=== PATIENT | male | born 1955 | race Caucasian/White ===

== ENCOUNTER 2025-03-28 17:59 | Emergency (ER) | payer OTHER ==
--- OUTSIDE RECORDS SUMMARY | 2025-03-28 18:01 | XMS REPORT | Continuity of Care Document ---
Author Name Unknown Address [address] [place] [address] Organization [facility] [place] Address [address] [place] [address] Care Team Providers Care Aircraft Time Clerk Name Role Phone Kendra Remy MD Primary Care Physici an Jung Angel RN, Iliana Attending Clinician Unavailable Rosalina Edge RN Attending Clinician Guicho velasco Team, [facility] Health Maintenance Attending Juania n Unavailable Kendra Remy MD Attending Clinician KENDRA REMY Attending Clinician STERLING Luna Attending Clinician Elisabetha ble Lab, Ang - Db Attending Clinician Unavailable Payers Payer Name Policy Type Policy Number Effective Date Expirati on Date Source Problems Condition Name Condition Details Condition Category Status Onset Date Resolution Date Last Treatment Date Treating Clinician Comments Source Gastroesop hageal reflux disease without esophagiti s Gastroesop hageal reflux disease without esophagiti s Disease Active 06-18 00:00: 00 [facility] Tobacco use disorder Tobacco use disorder Disease Active 06-18 00:00: 00 [facility] Allergies, Adverse Reactions, Alerts Allergy Name Allergy Type Status Severity Reaction(s) Onset Date Inactive Date Treating Clinician Comments Source Chlorpro mazine Propensi ty to adverse reaction s Active Other - See comments 06-18 00:00: 00 [facility] Imiprami ne Hcl Propensi ty to adverse reaction s Active Unknown - See comments 06-18 00:00: 00 Lock jaw [facility] IMIPRAMI NE HCL DRUG INGREDI Active Unknown-Cmnt 06-18 00:00: 00 [facility] CHLORPRO MAZINE DRUG INGREDI Active Other-Cmnt 06-18 00:00: 00 [facility] NO KNOWN ALLERGIE S Drug Class Active [facility] Social History Social Habit Start Date Stop Date Quantity Comments Source Gender identity [facility] History of tobacco use Cigarette Smoker [facility] Exposure to SARS-CoV-2 (event) 2022-10-12 00:00:00 2022-10-22 14:39:00 Not sure [facility] Alcoholic beverage intake 2022-10-15 00:00:00 2022-10-15 00:00:00 Current drinker of alcohol (finding) [facility] Alcohol intake 2022-10-15 00:00:00 2022-10-15 00:00:00 Current drinker of alcohol (finding) [facility] History of Social function 2022-06-18 00:00:00 2022-06-18 00:00:00 [facility] Cigarettes smoked current (pack per day) - Reported 2022-06-18 00:00:00 2022-06-18 00:00:00 [facility] Cigarette pack-years 2022-06-18 00:00:00 2022-06-18 00:00:00 [facility] Tobacco use and exposure 2022-06-18 00:00:00 2022-06-18 00:00:00 Smokeless tobacco non-user [facility] Alcohol Comment 2022-06-18 00:00:00 2022-06-18 00:00:00 3 days a week [facility] Sex assigned at 1955 00:00:00 1955 00:00:00 [facility] Smoking Status Start Date Stop Date Source Smokes tobacco daily 2022-06-18 00:00:00 [facility] Medications Ordered Medication Name Filled Medication Name Start Date Stop Date Current Medication? Ordering Clinician Indication Dosage Frequency Signature (SIG) Comments Components Source AMLODIPINE 5 mg tablet -11 00:00: 00 Yes [id number] 5mg TAKE 1 TABLET BY MOUTH IN THE MORNING [facility] iopamidol (ISOVUE 370-500 mL) injection 100 mL 10-28 13:12: 00 10-28 13:13 :00 No [id number] 100mL 100 mL, Intravenou s, ONCE, 1 dose, On Thu10/28/22 at 0830, Routine [facility] famotidine (PEPCID) 20 mg tablet 10-15 11:14: 23 Yes 20mg Take 1 tablet by mouth once daily as needed for Indigestio n. [facility] aspirin (ADULT ASPIRIN REGIMEN) 81 mg EC tablet 10-15 00:00: 00 Yes [id number] 81mg Take 1 tablet by mouth in the morning. [facility] meclizine 12.5 mg tablet 10-15 00:00: 00 Yes [id number] 12.5mg Take 1 tablet by mouth 3 (three) times daily as needed for Dizziness. [facility] amLODIPine 5 mg tablet 10-15 00:00: 00 02-16 00:00 :00 No [id number] 5mg Take 1 tablet by mouth in the morning. [facility] nicotine 7 mg/24 hr patch 4-05 00:00: 00 09-25 04:59 :00 No [id number] 1{patch } Apply 1 Patch to area(s) every 24 (twenty-fo ur) hours for 14 days. [facility] nicotine 14 mg/24 hr patch 3-22 00:00: 00 09-11 04:59 :00 No [id number] 1{patch } Apply 1 Patch to area(s) every 24 (twenty-fo ur) hours for 14 days. [facility] nicotine polacrilex (NICORETTE) 2 mg gum 2-08 00:00: 00 Yes [id number] 2mg Apply 1 Each as directed as needed for Other (nicotine craving). [facility] nicotine 21 mg/24 hr patch 2-08 00:00: 00 08-28 04:59 :00 No [id number] 1{patch } Apply 1 Patch to area(s) every 24 (twenty-fo ur) hours for 42 days. [facility] omeprazole 40 mg capsule 1-11 00:00: 00 Yes [id number] 40mg Take 1 capsule by mouth in the morning. [facility] Immunizations Ordered Immunization Name Filled Immunization Name Date Status Comments Source SARS-COV-2 COVID-19 VACCINE - (MODERNA) 2020-12-27 00:00:00 Completed [facility] SARS-COV-2 COVID-19 VACCINE - (MODERNA) 2020-12-27 00:00:00 Completed [facility] SARS-COV-2 COVID-19 VACCINE - (MODERNA) 2020-12-27 00:00:00 Completed [facility] SARS-COV-2 COVID-19 VACCINE - (MODERNA) 2020-12-27 00:00:00 Completed [facility] SARS-COV-2 COVID-19 VACCINE - (MODERNA) 2020-12-27 00:00:00 Completed [facility] SARS-COV-2 COVID-19 VACCINE - (MODERNA) 2020-12-27 00:00:00 Completed [facility] SARS-COV-2 COVID-19 VACCINE - (MODERNA) 2020-12-27 00:00:00 Completed [facility] SARS-COV-2 COVID-19 VACCINE - (MODERNA) 2020-12-27 00:00:00 Completed [facility] SARS-COV-2 COVID-19 VACCINE - (MODERNA) 2020-12-27 00:00:00 Completed SARS-COV-2 COVID-19 VACCINE - (MODERNA) 2020-12-27 00:00:00 Completed [facility] SARS-COV-2 COVID-19 VACCINE - (MODERNA) 2020-12-27 00:00:00 Completed [facility] Vital Signs Vital Name Observation Time Observation Value Comments S ource Systolic blood pressure 2022-10-15 16:12:00 144 mm[Hg] [facility] Diastolic blood pressure 2022-10-15 16:12:00 76 mm[Hg] [facility] Heart rate 2022-10-15 16:04:00 65 /min [facility] Body temperature 2022-10-15 16:04:00 36.61 Diana [facility] Respiratory rate 2022-10-15 16:04:00 18 /min [facility] Body height 2022-10-15 16:04:00 180.3 cm [facility] Body weight 2022-10-15 16:04:00 80.287 kg [facility] BMI 2022-10-15 16:04:00 24.69 kg/m2 [facility] Oxygen saturation in Arterial blood by Pulse oximetry 2022-10-15 16:04:00 98 /min [facility] Systolic blood pressure 2022-07-16 19:26:00 148 mm[Hg] [facility] Diastolic blood pressure 2022-07-16 19:26:00 81 mm[Hg] [facility] Heart rate 2022-07-16 19:21:00 73 /min [facility] Body temperature 2022-07-16 19:21:00 37 Diana [facility] Respiratory rate 2022-07-16 19:21:00 18 /min [facility] Body height 2022-07-16 19:21:00 180.3 cm [facility] Body weight 2022-07-16 19:21:00 80.377 kg [facility] BMI 2022-07-16 19:21:00 24.71 kg/m2 [facility] Oxygen saturation in Arterial blood by Pulse oximetry 2022-07-16 19:21:00 96 /min [facility] Systolic blood pressure 2022-06-18 19:11:00 127 mm[Hg] [facility] Diastolic blood pressure 2022-06-18 19:11:00 77 mm[Hg] [facility] Heart rate 2022-06-18 19:10:00 73 /min [facility] Body temperature 2022-06-18 19:10:00 36.61 Diana [facility] Body height 2022-06-18 19:10:00 180.3 cm [facility] Body weight 2022-06-18 19:10:00 78.926 kg [facility] BMI 2022-06-18 19:10:00 24.27 kg/m2 [facility] Oxygen saturation in Arterial blood by Pulse oximetry 2022-06-18 19:10:00 96 /min [facility] Procedures Procedure Date / Time Performed Performing Clinicia n Source CT ANGIOGRAM HEAD 2022-10-28 13:22:24 Kendra Dietrich [facility] CT ANGIOGRAM NECK 2022-10-28 13:21:00 Kendra Dietrich [facility] CT HEAD WO CONTRAST 2022-10-28 13:11:00 Kendra Mendez [facility] HB CREATININE SERUM/BLOOD FOR IMAGING 2022-10-28 13:07:00 Kendra Remy [facility] Encounters Start Date/Time End Date/Time Encounter Type Admission Type Attending Clinicians Care Facility Care Department Encounter ID Source 2025-03-28 00:00:00 2025-03-28 17:41:26 Nurse Triage Iliana Weller Nancy [facility] [id number] 350.1.13.10 4.2.7.2.686 [id number] [facility] 2025-01-03 00:00:00 2025-01-03 13:07:16 Nurse Triage Strsherrillle, Rosalina L Natan Edgeca L [facility] [id number] 350.1.13.10 4.2.7.2.686 [id number] [facility] 2023-02-19 00:00:00 2023-02-19 00:00:00 Telephone Team, [facility] [id number] 350.1.13.10 4.2.7.2.686 [id number] [facility] 2023-02-14 00:00:00 2023-02-14 00:00:00 Refill Kendra Remy [facility] 1.2.840.114 350.1.13.10 4.2.7.2.686 [id number] [facility] 2022-10-30 00:00:00 2022-10-30 00:00:00 Telephone Kendra Remy [facility] 1.2.840.114 350.1.13.10 4.2.7.2.686 [id number] [facility] 2022-10-28 07:45:10 2022-10-28 23:59:00 Hospital Encounter Kendra eRmy [facility] 1.2.840.114 350.1.13.10 4.2.7.2.686 [id number] [facility] 2022-10-28 07:44:38 2022-10-28 07:44:38 Hospital Encounter Kendra Remy [facility] 1.2.840.114 350.1.13.10 4.2.7.2.686 [id number] [facility] 2022-10-28 07:44:07 2022-10-28 07:44:07 Outpatient R JONELKENDRA CHOWDHURY [facility] [id number] [facility] 2022-10-28 07:44:07 2022-10-28 07:44:07 Hospital Encounter Kendra Remy [facility] 1.2.840.114 350.1.13.10 4.2.7.2.686 [id number] [facility] 2022-10-15 11:20:00 2022-10-15 11:53:44 Outpatient R KENDRA REMY [facility] [id number] [facility] 2022-10-15 11:20:00 2022-10-15 11:53:44 Office Visit Kendra Remy [facility] [id number] 350.1.13.10 4.2.7.2.686 [id number] [facility] 2022-07-16 13:30:00 2022-07-16 13:45:00 Office Visit Kendra Remy [facility] H[facility] 1.84.114 350.1.13.10 4.2.7.2.686 [id number] [facility] 2022-07-16 13:30:00 2022-07-16 13:43:09 Outpatient R KENDRA REMY [facility] [id number] [facility] 2022-06-18 13:58:39 2022-06-18 23:59:00 Outpatient R KENDRA REMY [facility] [id number] [facility] 2022-06-18 14:45:00 2022-06-18 14:56:45 Software Validation Technician Visit Lab[facility] 1.84.114 350.1.13.10 4.2.7.2.686 [id number] [facility] 2022-06-18 13:00:00 2022-06-18 14:24:34 Office Visit Kendra Remy [facility] HEM[facility] 1.84.114 350.1.13.10 4.2.7.2.686 [id number] [facility] Results Test Description Test Time Test Comments Results Result Co mments Source [facility] RT-PCR/[id number] 10:54:31* Test Item Value Reference Range Interpretation Comments SARS-CoV-2 INTERPRETATION (test code = 67621) NEGATIVE SEE NOTE SARS-CoV-2 R NA NOT DETECTEDNegative results do not preclude SARS-CoV-2 infection and should notbe used as the sole basis for patient management decisions. Negativeresults must be combined with clinical observations, patient history,and epidemiological information. Optimum specimen types and timingfor peak viral levels during infections caused by SARS-CoV-2 have notbeen determined. Collection of multiple specimens or types ofspecimens may be necessary to detect virus. Improper specimencollection and handling, sequence variability under primers/probes,or organism present below the limit of detection may lead to falsenegative results. Positive and negative predictive values oftesting are highly dependent on prevalence. False negative testresults are more likely when prevalence is high. SOURCE (test code = 30357) NASOPHARYNGEAL Note: Methodolog y is Michael Love Real-Time RT-PCR. The expected result or reference range is NEGATIVE (Not Detected). For more information regarding COVID-19 testing to include clinicalinformation, methodology detail, intended use, FDA authorization andrecommended fact sheets for patients or healthcare providers, see NewTest Announcement: SARS-CoV-2 (COVID-19) by NAAT at URL below (note,fact sheets are provided by method given in report:[email or web address]/[email or web address]/ Alternatively, see downloadable PDF fact sheet at:https://www.[employer] [email or web address]-UP-PCR UNLESS OTHERWISE INDICATED, ALL TESTING PERFORMED [facility] [address] [place] [address], [place] [address] AUTOMOTIVE MAINTENANCE TECHNICIAN: SHERRI NUNN M.D. [place] NUMBER [id number] [facility] [place]. [id number] Notes Date/Time Note Provider Source 2025-03-28 16:59:00 Regarding: mesh hernia surgery ----- Message from Patient Bookkeeping Service Sales Agent sent at 03/28/2025 4:57 PM CDT ----- Oswaldo Braxton is a 69 year old male Pt calling in stating he had [facility] mesh hernia surgery several years ago and feels like it bust open and he has a hernia again. Pt stating he is having manageable stomach pain . Pt declined making an appt. Req to speak to a nurse [phone] (home) Iliana Angel RN [facility] 2025-03-28 16:59:00 Adult Triage Assessment Last Clinic Visit: No Recent Visit Primary Symptom: Hernia Onset / Duration: 2 days ago Location / Description: Patient states he had mesh hernia surgery several years ago at [facility] and 2 days ago it felt henry it bust open causing him to feel the hernia again. Patient has mild pain down to scrotum, pain is manageable. Pain / Severity: 3/10 Associated Symptoms: None Fever / Method: Denies Hydration: Deferred to ED Treatment so far: Denies any pain medications Effect on ADL's: No Changes LMP: NA Pre-existing condition / Immunocompromised: Gastroesophageal reflux disease without esophagitis Tobacco use disorder Reason for Disposition [1] Constant pain in scrotum or testicle AND [2] present > 1 hour Protocols used: Scrotum [id number] [facility] 2025-01-03 12:23:00 Adult Triage Assessment Last Clinic Visit: 10/15/22 family med, HTN Primary Symptom: dizziness, trembling Onset / Duration: thursday Location / Description: overheated on Thursday, and has been symptomatic since, dizziness, trembling knees, weakness, neck pain, and difficulty thinking, minimal sweating today Pain / Severity: neck pain, knee pain 3/10 constant Associated Symptoms: nausea Fever / Method: chills but has not measured temperature Hydration: only coffee today, urination every 4-8 hours, as much as usual Treatment so far: drinking fluids Effect on ADL's: severe LMP: n/a Pre-existing condition / Immunocompromised: neck pain, vertigo, shoulder dislocation, GERD 1232 - no answer, left message will call back in 5-10 minutes. phone number verified. Oswaldo Braxton is a 69 year old male calling for concern of lasting symptoms since being overheated on Thursday. Patient reports continued dizziness today with difficulty standing and weakness. Patient given care advice to go to ED for evaluation. Patient declines ED at this time and reports he is going to drink orion e water and electrolytes and see if he feels better. Encouraged ER as soon as possible due to concerning symptoms. Patient reports he will drink the fluids and then go to the ED to be seen if symptoms do not improve. All questions answered and call back instructions provided and patient voiced understanding. Reason for Disposition SEVERE dizziness (e.g., unable to stand, requires support to walk, feels like passing out now) Protocols used: Dizziness - [facility] Blurb 2025-01-03 12:23:00 Regardin, yr old, male, currently feeling dizzy, heat exposure or blood pressure ----- Message from Patient Bookkeeping Service Sales Agent sent at 01/03/2025 12:23 PM CDT ----- Oswaldo Braxton is a 69 year old male Pt currently feeling dizzy, neck hurting and unsure if heat or blood pressure. Rosalina Edge RN [facility] 2023-02-19 10:45:36 Formatting of this n ote is different from the original. Encounter created for Care Everywhere Search. Patient was not contacted. If you have any questions or concerns, please call us at the number below. Health Maintenance Team *To check all of your overdue preventative health using [employer], simply click Preventive Care under the My Record section in the Main Menu tab. Ask your doctor about any overdue items or call the number above to schedule! Paula Whitley [facility]
--- NOTE | 2025-03-28 19:34 | RAD REPORT ---
EXAMINATION: CT Abdomen Pelvis Wo Contrast CLINICAL INDICATION: Male, 69 years old. ABD PAIN TECHNIQUE: CT abdomen and pelvis was performed, without IV contrast, as per department protocol. Axia l, sagittal and coronal reconstructions were obtained. One or more of the following dose reduction techniques were used: Automated exposure control, adjustment of the mA and kV according to the patien t size, and iterative reconstruction. Unless otherwise specified, incidental findings do not require dedicated imaging follow-up. COMPARISON: No prior exam. FINDINGS: The lack of intravenous contrast limits the sensitivity of this exam for evaluation of solid visceral organs, vascular structures, and retroperitoneum. LOWER CHEST: The visualized lung bases are clear. LIVER: Normal in size and contour. No focal lesion. BILIARY SYSTEM: No suspicious abnormalities. SPLEEN: Normal size. No focal lesion. PANCREAS: No mass, ductal dilation, or lilian-pancreatic fluid. ADRENALS: Normal; no mass. KIDNEYS AND URETERS: Normal size and contour. No hydronephrosis. URINARY BLADDER: Decompressed limiting evaluation. GASTROINTESTINAL TRACT: Mild colonic diverticulosis. Focal inflammatory changes along a laterally pro jecting diverticulum of the distal descending colon. No evidence of complications. No evidence of bowel obstruction, significant free fluid, free air or abscess. APPENDIX: Normal appendix. LYMPH NODES: No lymphadenopathy. MUSCULOSKELETAL: No acute or suspicious osseous abnormality. ADDITIONAL FINDINGS: Left inguinal hernia containing non-distended small bowel. IMPRESSION: Acute diverticulitis of the distal descending colon. No evidence of complications. THIS REPORT CONTAINS FINDINGS THAT MAY BE CRITICAL TO PATIENT CARE. The findings were verbally commun icated via telephone to RIKKI Mueller on 03/28/2025 7:28 PM.
[2025-03-28] MEDS ORDERED: ONDANSETRON 4 MG/2 ML VIAL ONE (19:36)
[2025-03-28] MEDS ORDERED: NA CHLORIDE 0.9% 1,000 ML ONE (19:37)
[2025-03-28] MEDS ORDERED: FENTANYL CITR 100 MCG/2 ML ONE (19:39)
[2025-03-28 19:55] LABS: Absolute Lymphocytes (CBC) 2.7 K/uL (0.7-4.9); Hematocrit 43.1 % (39.6-49.0); Hemoglobin 14.8 g/dL (13.6-17.9); MCH 32.1 pg (27.0-35.0); MCHC 34.3 g/dL (32.0-36.0); MCV 93.7 fL (80-100); MPV 8.1 fL (7.6-11.3); Nucleated RBC Absolute Count 0.0 (0-0); Nucleated Red Blood Cells % 0.0 % (0-0); RBC Red Blood Cell Count 4.60 M/uL (4.33-5.43); White Blood Count 9.70 thou/uL (4.3-10.9)
[2025-03-28 20:13] LABS: ALT/SGPT 32.0 U/L (16-61); AST/SGOT 22.0 U/L (15-37); Albumin 3.7 g/dL (3.4-5.0); Albumin/Globulin Ratio 1.2 (1.1-1.8); Alkaline Phosphatase 78.0 U/L (45-117); Anion Gap 8.6 mEq/L (5.0-15.0); BUN Blood Urea Nitrogen 15.0 mg/dL (7-18); Globulin 3.2 g/dL (2.3-3.5); Glucose Level 112.0 mg/dL (74-106); Potassium 3.6 mEq/L (3.5-5.1)
--- NOTE | 2025-03-28 20:17 | ER ---
Nurse's Notes [facility] Name: Brandon Beaver Age: 69 yrs Sex: Male : 1955 Arrival Date: 03/28/2025 Time: 17:59 Bed 19 Private MD: Diagnosis: Diverticulitis of intestine, part unspecified, without perforation or abscess without bleeding Presentation: 03/28 18:18 Chief complaint: Patient states: LT GROIN PAIN THAT STARTED YESTERDAY EVENING AND dd2 WORSENED AROUND MIDNIGHT. PT REPORTS HX OF INGUINAL HERNIA REPAIR. Coronavirus screen: At this time, the client does not indicate any symptoms associated with coronavirus-19. Ebola Screen: No symptoms or risks identified at this time. Initial Sepsis Screen: Does the patient meet any 2 criteria? No. Patient's initial sepsis screen is negative. Does the patient have a suspected source of infection? No. Patient's initial sepsis screen is negative. Risk Assessment: Do you want to hurt yourself or someone else? Patient reports no desire to harm self or others. Onset of symptoms was March 27, 2025. 18:18 Method Of Arrival: Ambulatory dd2 18:18 Acuity: JOSE 3 dd2 Triage Assessment: 18:21 General: Appears in no apparent distress. uncomfortable, Behavior is calm, cooperative, dd2 appropriate for age. Pain: Complains of pain in left femoral area and left inguinal area. Historical: - Allergies: 18:21 Tofranil; dd2 - PMHx: 18:21 None; dd2 - PSHx: 18:21 HERNIA REPAIR; dd2 - Immunization history:: Adult Immunizations unknown. - Infectious Disease History:: Denies. - Social history:: Smoking status: Patient reports the use of cigarette tobacco products, smokes one pack cigarettes per day. Screenin:30 [facility] ED Fall Risk Assessment (Adult) History of falling in the last 3 months, nh2 including since admission No falls in past 3 months (0 pts) Confusion or Disorientation No (0 pts) Intoxicated or Sedated No (0 pts) Impaired Gait No (0 pts) Mobility Assist Device Used No (0 pt) Altered Elimination No (0 pt) Score/Fall Risk Level 0 - 2 = Low Risk Oriented to surroundings, Maintained a safe environment, Educated pt \T\ family on fall prevention, incl call for assistance when getting out of bed, Assessed \T\ reinforced patient's understanding of fall precautions. Abuse screen: Denies threats or abuse. Denies injuries from another. Nutritional screening: No deficits noted. Tuberculosis screening: No symptoms or risk factors identified. Assessment: 19:30 General: Appears in no apparent distress. Behavior is calm, cooperative, appropriate nh2 for age. Pain: Complains of pain in left lower quadrant Pain radiates to left inguinal area Pain currently is 4 out of 10 on a pain scale. Quality of pain is described as aching, Pain began 2-3 days ago. Is intermittent, Alleviated by exercise, repositioning. Cardiovascular: Denies chest pain, Heart tones S1 S2 present. Cardiovascular: Patient's skin is warm and dry. Respiratory: Respiratory effort is even, unlabored, Breath sounds are clear bilaterally. GI: Abdomen is round distended, Bowel sounds present X 4 quads. Abd is soft X 4 quads Abdomen is tender to palpation in left lower quadrant Patient currently denies nausea, vomiting. : No signs and/or symptoms were reported regarding the genitourinary system. EENT: No signs and/or symptoms were reported regarding the EENT system. Derm: Skin is pink, warm \T\ dry. Musculoskeletal: Circulation, motion, and sensation intact. Range of motion: intact in all extremities. 20:05 Reassessment: Patient and/or family updated on plan of care and expected duration. Pain nh2 level reassessed. Patient is alert, oriented x 3, equal unlabored respirations, skin warm/dry/pink. Patient states feeling better. Vital Signs: 18:18 BP 144 / 79; Pulse 79; Resp 16; Temp 98.3; Pulse Ox 99% on R/A; Pain 8/10; dd2 19:30 BP 137 / 65; Pulse 75; Resp 18; Temp 98.1; Pulse Ox 100% on R/A; nh2 20:33 BP 150 / 75; Pulse 68; Resp 18; Pulse Ox 100% ; nh2 18:18 Pain Scale: Adult dd2 ED Course: 18:03 Patient arrived in ED. cj3 18:03 Shyla Perez FNP-C is [facility]. kb 18:03 Wyatt Craft DO is Attending Physician. kb 18:21 Triage completed. dd2 18:21 Arm band placed on left wrist. dd2 19:07 CT Abd/Pelvis - Without Contrast In Process Unspecified. EDMS 19:30 Patient has correct armband on for positive identification. Bed in low position. Call nh2 light in reach. Side rails up X 1. Provided Education on: using call light for assistance. 19:30 No provider procedures requiring assistance completed. Inserted saline lock: 20 gauge nh2 in right antecubital area, using aseptic technique. Blood collected. Flushed with 10 mL NS. 19:35 Tiago Melgoza Jr, RN is Primary Nurse. nh2 20:33 IV discontinued, intact, bleeding controlled, No redness/swelling at site. Pressure nh2 dressing applied. Administered Medications: 19:39 Not Given (unavailablee): morphineor iv 4 mg IVP once over 4 mins kb 19:49 Not Given (Patient Refused): ondansetron 4 mg IVP once; over 2 minutes nh2 19:49 Drug: NS 0.9% IV 1000 ml IV at 1 bolus Per protocol; to be given as a bolus over 60 nh2 minutes Route: IV; Rate: 1 bolus; Site: right antecubital; 20:32 Follow up: IV Status: Completed infusion; IV Intake: 1000ml nh2 19:49 Not Given (Patient Refused): fentanyl (pf)25 mcg IVP once nh2 20:32 Drug: Ciprofloxacin PO 500 mg PO once Route: PO; nh2 20:32 Follow up: Response: Medication administered at discharge. nh2 20:32 Drug: metroNIDAZOLE PO 500 mg PO once Route: PO; nh2 20:33 Follow up: Response: Medication administered at discharge. nh2 Medication: 19:30 VIS not applicable for this client. nh2 Intake: 20:32 IV: 1000ml; Total: 1000ml. nh2 Outcome: 20:16 Discharge ordered by . kb 20:34 Discharged to home ambulatory, with family, nh2 20:34 Condition: stable 20:34 Discharge instructions given to patient, family, Instructed on discharge instructions, follow up and referral plans. medication usage, Demonstrated understanding of instructions, follow-up care, medications, Prescriptions given X 2, 20:34 Patient left the ED. nh2 Signatures: Dispatcher [employer] EDMS Shyla Perez, YIMI BRANTD-SARAHI Suarez RN RN dd2 Tiago Melgoza Jr, ROBSON CHANCE nh2 Fallon Sharif 3 Corrections: (The following items were deleted from the chart) 20:34 20:23 Abad Jr, Tiago, RN is Primary Nurse. nh2 nh2
--- NOTE | 2025-03-28 20:17 | EDPHYS ---
Physician Documentation [facility] Name: Brandon Beaver Age: 69 yrs Sex: Male : 1955 Arrival Date: 03/28/2025 Time: 17:59 Bed 19 Private MD: ED Physician Wyatt Craft HPI: 03/28 20:21 This 69 yrs old Male presents to ER via Ambulatory with complaints of Hernia. kb 20:21 Pt is a 69 year old male who presents for left groin pain that started last night and kb has gotten progressively worse. States he is concerned that the mesh from a hernia repair is damaged. Denies n/v/d, fever. Historical: - Allergies: 18:21 Tofranil; dd2 - PMHx: 18:21 None; dd2 - PSHx: 18:21 HERNIA REPAIR; dd2 - Immunization history:: Adult Immunizations unknown. - Infectious Disease History:: Denies. - Social history:: Smoking status: Patient reports the use of cigarette tobacco products, smokes one pack cigarettes per day. ROS: 20:20 Constitutional: As per HPI kb Exam: 20:20 Constitutional: This is a well developed, well nourished patient who is awake, alert, kb and in no acute distress. Head/Face: Normocephalic, atraumatic. ENT: Moist Mucous membranes Cardiovascular: Regular rate Respiratory: Respirations even and unlabored. No increased work of breathing. Talking in full sentences Skin: Warm, dry with normal turgor. Normal color. MS/ Extremity: Pulses equal, no cyanosis. Neurovascular intact. Full, normal range of motion. Neuro: Awake and alert, GCS 15, oriented to person, place, time, and situation. 20:20 Abdomen/GI: Inspection: abdomen appears normal, Bowel sounds: normal, Palpation: soft, in all quadrants, moderate abdominal tenderness, in the left lower quadrant, Vital Signs: 18:18 BP 144 / 79; Pulse 79; Resp 16; Temp 98.3; Pulse Ox 99% on R/A; Pain 8/10; dd2 19:30 BP 137 / 65; Pulse 75; Resp 18; Temp 98.1; Pulse Ox 100% on R/A; nh2 20:33 BP 150 / 75; Pulse 68; Resp 18; Pulse Ox 100% ; nh2 18:18 Pain Scale: Adult dd2 MDM: 18:03 Medical Screening Exam initiated kb 20:20 Differential diagnosis: colitis, hernia, diverticulitis, kidney stone. Data reviewed: kb vital signs, nurses notes. Consideration of Admission/Observation Escalation of care including admission/observation considered. admission considered but vss, labs reassuring, pt nontoxic in appearance, tolerating po intake. Discussion of test interpretation with radiology: I had a discussion with radiology regarding a test interpretation. Discussed CT with Dr Sandoval. Counseling: I had a detailed discussion with the patient and/or guardian regarding the historical points, exam findings, and any diagnostic results supporting the discharge/admit diagnosis, lab results, radiology results, the need for outpatient follow up, a family practitioner, to return to the emergency department if symptoms worsen or persist or if there are any questions or concerns that arise at home. 03/28 19:29 Order name: CBC with Diff; Complete Time: 20:00 kb 03/28 19:29 Order name: CMP; Complete Time: 20:16 kb 03/28 18:40 Order name: CT Abd/Pelvis - Without Contrast; Complete Time: 19:37 kb 03/28 19:29 Order name: IV Saline Lock; Complete Time: 19:52 kb 03/28 19:29 Order name: Labs collected and sent; Complete Time: 19:52 kb Administered Medications: 19:39 Not Given (unavailablee): morphineor iv 4 mg IVP once over 4 mins kb 19:49 Not Given (Patient Refused): ondansetron 4 mg IVP once; over 2 minutes nh2 19:49 Drug: NS 0.9% IV 1000 ml IV at 1 bolus Per protocol; to be given as a bolus over 60 nh2 minutes Route: IV; Rate: 1 bolus; Site: right antecubital; 20:32 Follow up: IV Status: Completed infusion; IV Intake: 1000ml nh2 19:49 Not Given (Patient Refused): fentanyl (pf)25 mcg IVP once nh2 20:32 Drug: Ciprofloxacin PO 500 mg PO once Route: PO; nh2 20:32 Follow up: Response: Medication administered at discharge. nh2 20:32 Drug: metroNIDAZOLE PO 500 mg PO once Route: PO; nh2 20:33 Follow up: Response: Medication administered at discharge. nh2 Disposition: 23:05 I was immediately available on-site in the Emergency Department for consultation in the ms3 care of the patient. . Disposition Summary: 03/28/25 20:16 Discharge Ordered Notes: Location: Home kb Condition: Stable kb Diagnosis - Diverticulitis of intestine, part unspecified, without perforation or abscess kb without bleeding Followup: kb - With: Emergency Department - When: As needed - Reason: Worsening of condition Followup: kb - With: Private Physician - When: 2 - 3 days - Reason: Recheck today's complaints, Continuance of care, Re-evaluation by your physician Discharge Instructions: - Discharge Summary Sheet kb - Diverticulitis, [id number] kb Forms: - Medication Reconciliation Form kb - Antibiotic Education kb - Prescription Opioid Use kb - Patient Portal Instructions kb - Leadership Thank You Letter kb Prescriptions: - Flagyl 500 mg Oral Tablet - take 1 tablet ORAL route every 8 hours for 10 days; 30 tablet; Refills: 0, kb Product Selection Permitted - Cipro 500 mg Oral tablet - take 1 tablet ORAL route every 12 hours for 10 days; 20 tablet; Refills: 0, kb Product Selection Permitted Signatures: Dispatcher [employer] EDMS Shyla Perez FNP-Guille GARCIAP-Wyatt Malcolm DO DO ms3 SARAHI TINOCO, RN RN dd2 Tiago Melgoza Jr RN RN nh2 Corrections: (The following items were deleted from the chart) 18:40 18:40 Abdomen Pelvis Wo Con+CT.RAD.BRZ ordered. EDMS EDMS 19:29 19:29 CBC+H.LAB.BRZ ordered. EDMS EDMS 19:29 19:29 COMPREHENSIVE METABOLIC PANEL+C.LAB.BRZ ordered. EDMS EDMS
[2025-03-28] MEDS ORDERED: CIPROFLOXACIN HCL 500 MG TAB ONE (20:24)
[2025-03-29 00:14] VITALS: BP 150/75; O2SAT 100
[2025-03-29 00:15] VITALS: TEMP 98.1
== END 2025-03-28 20:34 | disposition home or self-care (01) ==
LOC: ER 17:59
DX: K57.32 Diverticulitis of large intestine without perforation or abscess without bleeding (principal); F17.210 Nicotine dependence, cigarettes, uncomplicated
CPT/HCPCS: 85025; 36415; 80053; 74176; 96360; 99284; J7030; J2405; J3010